=== PATIENT | male | born 1950 | race Caucasian/White ===

== ENCOUNTER → 2018-05-06 09:34 | Outpatient (CLI) | payer BC, SELFPAY ==
--- NOTE | 2018-05-06 09:39 | RAD_ITS ---
STUDY: X-RAY - PELVIS REASON FOR EXAM: Male, 68 years old. Rheumatoid arthritis. TECHNIQUE: One view of the pelvis was obtained. COMPARISON: None. FINDINGS: There is a non-specific bowel gas pattern. Normal visualized soft tissue structures. Normal bilateral iliac wings, sacroiliac joints and visualized sacrum. Normal visualized bilateral superior and inferior pubic rami. Normal pubic symphysis. Normal ischial tuberosities. Normal visualized right femoral head. Normal right acetabulum. Normal right hip joint. Normal visualized left femoral head. Normal left acetabulum. Normal left hip joint. RAD/Pelvis 1 or 2 Views IMPRESSION: Normal x-ray examination of the pelvis. Electronically Signed: Julian Sanderson DO at 17:09 EST Tel [phone], Service support ,
[2018-05-06 12:08] LABS: Absolute Lymphocyte Count 1.56 X10^3/ul (0.83-4.51); Absolute Neutrophil Count 4.5 X10^3/uL (2.0-7.7); Basophil# 0.12 X10^3/uL; Basophil% 1.7 % (0-1); Eosinophil# 0.26 X10^3/uL; Eosinophils% 3.8 % (0-5); Hemoglobin 19.2 g/dl (13.0-16.5); Lymphocyte # 1.56 X10^3/ul (4.0); Lymphocyte % 22.5 % (19-41); Mean Corp Hgb Conc 34.5 g/gl (32-36); Mean Corpuscular Hgb 30.8 pg (27.0-32.0); Mean Corpuscular Volume 89.2 fL (80-94); Monocyte# 0.49 X10^3/uL; Monocyte% 7.1 % (0-10); Neutrophil # 4.49 X10^3/uL (2.7-7.7); Neutrophil % 64.8 % (47-70); Platelet Count 225 K/mm3 (150-450); RBC Distribution Width CV 14.4 % (11.6-14.6); RBC Distribution Width SD 47.2 fl (35.1-43.9); Red Blood Count 6.23 M/mm3 (4.6-6.2); White Blood Count 6.9 K/mm3 (4.4-11.0)
[2018-05-06 12:18] LABS: AST(SGOT) 25 U/L (15-37); Alanine Aminotransfer ALT/SGPT 42 U/L (16-61); Albumin, Serum 4.2 g/dL (3.2-5.0); Alkaline Phosphatase 76 U/L (45-117); Anion Gap 11 (5-15); BUN 15 mg/dL (7-18); BUN/Creat Ratio 12.9 RATIO (10-20); Calcium,Total 9.1 mg/dL (8.5-10.1); Chloride 98 mmol/L (98-107); Creatinine, Serum 1.16 mg/dL (0.70-1.30); EST Glomerular Filtration Rate 66 mL/min (>60); Est Glom Filt Rate - Afr Amer 80 mL/min (>60); Globulin 4.2 g/dL (2.2-4.2); Glucose 101 mg/dL (74-106); Potassium 3.3 mmol/L (3.5-5.1); Protein, Total 8.4 g/dL (6.4-8.2); Sodium Level 137 mmol/L (136-145)
[2018-05-06 13:03] LABS: Hematocrit 55.6 % (40-54)
[2018-05-06 13:04] LABS: POSITIVE COUNT NO; POSITIVE DIFFERENTIAL NO; POSITIVE MORPHOLOGY NO
[2018-05-12 17:09] LABS: HEPATITIS B SURFACE AG Negative (Negative); HLA B27 Negative (.); Hep B Surface Antibodies Non Reactive (.); Hep C Antibodies <0.1 s/co ratio (0.0-0.9)
== END ==
PROVIDERS: Referring Provider Internal Medicine Rheumatology; Visit Provider Internal Medicine Rheumatology
DX: M05.79 Rheumatoid arthritis with rheumatoid factor of multiple sites without organ or systems involvement (principal); M15.9 Polyosteoarthritis, unspecified; Q66.7 Congenital pes cavus; M48.061 Spinal stenosis, lumbar region without neurogenic claudication
CPT/HCPCS: 36415; 72170; 80053; 81374; 85025; 86706; 86803; 87340

== ENCOUNTER → 2018-06-03 12:48 | Outpatient (CLI) | payer BC, SELFPAY ==
[2018-06-03 14:18] LABS: Absolute Lymphocyte Count 1.93 X10^3/ul (0.83-4.51); Absolute Neutrophil Count 3.8 X10^3/uL (2.0-7.7); Basophil% 1.5 % (0-1); Eosinophil# 0.31 X10^3/uL; Eosinophils% 4.6 % (0-5); Hematocrit 51.7 % (40-54); Hemoglobin 17.7 g/dl (13.0-16.5); Lymphocyte # 1.93 X10^3/ul (4.0); Lymphocyte % 28.5 % (19-41); Mean Corp Hgb Conc 34.2 g/gl (32-36); Mean Corpuscular Hgb 30.9 pg (27.0-32.0); Mean Corpuscular Volume 90.2 fL (80-94); Mean Platelet Vol. 9.5 fl (6.2-12.0); Monocyte# 0.68 X10^3/uL; Neutrophil # 3.76 X10^3/uL (2.7-7.7); Neutrophil % 55.4 % (47-70); Platelet Count 227 K/mm3 (150-450); RBC Distribution Width CV 14.9 % (11.6-14.6); RBC Distribution Width SD 48.3 fl (35.1-43.9); Red Blood Count 5.73 M/mm3 (4.6-6.2); White Blood Count 6.8 K/mm3 (4.4-11.0)
[2018-06-03 14:19] LABS: POSITIVE COUNT NO; POSITIVE DIFFERENTIAL NO; POSITIVE MORPHOLOGY NO
--- OUTSIDE RECORDS SUMMARY | 2018-07-20 15:27 | XMS RPT_ITS ---
:1950 Author Organization [facility] Care Team Providers Name Role Phone DR. SUSAN LAL DO Attending Unavailable KAYE OLSON Primary Care Unavailable DR. SUSAN LAL DO Attending Unavailable KAYE OLSON Primary Care Unavailable DR. 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 without organ or systems involvement / M05.79(ICD-10) 05/06/2018 Unknown 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 [facility] Diagnosis unspecified / SUSAN [facility] E78.5(ICD-10) Repository 11/29/2017 Admitting Essential LUKASZ MARSHALL DR. [facility] Diagnosis (primary) SUSAN [facility] hypertension / Repository I10(ICD-10) 11/29/[address], unspecified DR. David LAL DO [facility] Diagnosis / M10.9(ICD-10) SUSAN [facility] Repository PROCEDURES PROCEDURES No Procedure Records FoundRESULTS RESULTS CBC W/DIFF, AUTOMATED Collected: 06/03/2018 Status: F Source: [facility] TYPE CODE TESTS RESULT OUT OF RANGE REFERENCE UNITS LAB L100.1000 4.4-11.0 K/mm3 Normal WBC 6.8 LAB L100.1200 4.6-6.2 M/mm3 Normal RBC 5.73 LAB L100.1300 13.0-16.5 g/dl High HGB 17.7 LAB L100.1400 40-54 % Normal HCT 51.7 LAB L100.1500 80-94 fL Normal MCV 90.2 LAB L100.1600 27.0-32.0 pg Normal MCH 30.9 LAB L100.1700 32-36 g/gl Normal MCHC 34.2 LAB L100.1810 11.6-14.6 % High RDW CV 14.9 LAB L100.1820 35.1-43.9 fl High RDW SD 48.3 LAB L100.1900 150-450 K/mm3 Normal PLT 227 LAB L100.2000 6.2-12.0 fl Normal MPV 9.5 LAB L100.2100 47-70 % Normal NEUT% 55.4 LAB L100.2200 19-41 % Normal LY% 28.5 LAB L100.2300 0-10 % Normal MONO% 10.0 LAB L100.2400 0-5 % Normal EO% 4.6 LAB L100.2500 0-1 % High BASO% 1.5 LAB L100.2550 0.0-0.9 % Normal IM GRAN % 0.000 Result Comment: IG% - Immature Granulocytes (promyelocytes, myelocytes and metamyelocytes) > 1% indicates that a LEFT SHIFT is Present. LAB L100.2620 2.0-7.7 X10 3/uL Normal Absolute Neut 3.8 LAB L100.2720 0.83-4.51 X10 3/ul Normal Absolute Lymph 1.93 Performed By: #### L100.0100 #### [facility] [address] [place], [address] FTESTO Collected: 05/30/2018 Status: F Source: [facility] 9:51 AM [facility] REPOSITORY TYPE CODE TESTS RESULT OUT OF REFERENCE UNITS RANGE LAB TESTO(LOIN 193-824 ng/dL C) Testosterone 405 Result Comment: Disregard reference range. Test performed by: [facility], [place], [place] Reference value is 240 to 950 ng/dL. Testing performed by [facility]. Called to Angela at [facility] 06/12/18 1107 SRobb Corrected on 06/12 AT 1108: Previously reported as 428 A testosterone level in the 193 320 ng/dL range with associated clinical symptoms is considered low and may indicate hypogonadism (from [facility] 2010 363:123 135). Results >320 ng/dL are considered normal. Performed By: [facility] [address] [place] [address] Daily Release And Dupe Printer: Socorro Peterson M.D. CLIA#: [id number] Phone#: LAB FREE(LOINC) Free Testosterone Percent free % calculation not provided by [facility]. Result Comment: Performed By: [facility] [address] [place] [id number] Daily Release And Dupe Printer: Socorro Peterson M.D. CLIA#: [id number] Phone#: LAB FTES(LOINC) 41.7-180.2 pg/mL Free Low Testosterone 8.1 Result Comment: Disregard reference range. Test performed by: [facility], [place], [place] Reference value is 3.28 to 12.2 ng/dL. Testing performed by [facility]. Performed By: [facility] [address] [place] [id number] Daily Release And Dupe Printer: Socorro Peterson M.D. CLIA#: [id number] Phone#: Performed By: #### FTESTO #### [address] [address] COMPREHENSIVE METABOLIC Collected: 05/06/2018 Status: F Source: [facility] CECI 9:40 AM [facility] REPOSITORY Order Comment: Comments: VECTRA TYPE CODE TESTS RESULT OUT OF RANGE REFERENCE UNITS LAB L501.0100 74-106 mg/dL Normal GLU 101 Result Comment: Fasting Glucose result from 100 to 125 mg/dL suggests IMPAIRED HOMEOSTASIS per A.D.A. criteria. Please note revised GLUCOSE reference range effective 2017. LAB L501.1000 7-18 mg/dL Normal BUN 15 LAB L501.1100 0.70-1.30 mg/dL Normal CREAT,SERUM 1.16 Result Comment: The validity of the calculated GFR AND GFRAA in patients over 70 years has not been determined. Clinical correlation is essential. LAB L501.1110 >60 mL/min Normal EST GFR 66 Result Comment: Non- GFR Calc LAB L501.1115 >60 mL/min Normal EST GFR - AA 80 Result Comment: GFR Calc LAB L501.1300 10-20 RATIO Normal BUN/CRE 12.9 LAB L501.1500 6.4-8.2 g/dL High T PROT 8.4 LAB L501.1800 3.2-5.0 g/dL Normal ALB 4.2 LAB L501.1950 2.2-4.2 g/dL Normal GLOB 4.2 LAB L501.2000 0.9-2.4 RATIO Normal A/G 1.0 LAB L501.2200 8.5-10.1 mg/dL CA Normal 9.1 LAB L501.4100 15-37 U/L Normal AST 25 Result Comment: Slight Hemolysis, Result may be falsely increased. LAB L501.4305 45-117 U/L Normal ALK P 76 LAB L501.4405 16-61 U/L Normal ALT 42 LAB L501.4600 0.20-1.00 mg/dL Normal T BILI 0.80 LAB L501.5300 136-145 mmol/L Normal NA 137 LAB L501.5600 3.5-5.1 mmol/L Low K 3.3 Result Comment: Slight Hemolysis, Result may be falsely increased. LAB L501.5900 98-107 mmol/L Normal CL 98 LAB L501.6100 21.0-32.0 mmol/L Normal CO2 28.0 LAB L501.6200 5-15 Normal GAP 11 Performed By: #### L500.4050 #### [facility] [address] [place], [address] CBC W/DIFF, AUTOMATED Collected: 05/06/2018 Status: F Source: [place] 9:40 AM [facility] REPOSITORY Order Comment: RESULTS CALLED TO ZACHERY BENOIT AT 'S OFFICE 05/06/18 1348 Zachery Lara. REPORT READ BACK BY SAME. TYPE CODE TESTS RESULT OUT OF RANGE REFERENCE UNITS LAB L100.1000 4.4-11.0 K/mm3 Normal WBC 6.9 LAB L100.1200 4.6-6.2 M/mm3 High RBC 6.23 LAB L100.1300 13.0-16.5 g/dl High alert HGB 19.2 LAB L100.1400 40-54 % High HCT 55.6 LAB L100.1500 80-94 fL Normal MCV 89.2 LAB L100.1600 27.0-32.0 pg Normal MCH 30.8 LAB L100.1700 32-36 g/gl Normal MCHC 34.5 LAB L100.1810 11.6-14.6 % Normal RDW CV 14.4 LAB L100.1820 35.1-43.9 fl High RDW SD 47.2 LAB L100.1900 150-450 K/mm3 Normal PLT 225 LAB L100.2000 6.2-12.0 fl Normal MPV 10.0 LAB L100.2100 47-70 % Normal NEUT% 64.8 LAB L100.2200 19-41 % Normal LY% 22.5 LAB L100.2300 0-10 % Normal MONO% 7.1 LAB L100.2400 0-5 % Normal EO% 3.8 LAB L100.2500 0-1 % High BASO% 1.7 LAB L100.2550 0.0-0.9 % Normal IM GRAN % 0.100 Result Comment: IG% - Immature Granulocytes (promyelocytes, myelocytes and metamyelocytes) > 1% indicates that a LEFT SHIFT is Present. LAB L100.2620 2.0-7.7 X10 3/uL Normal Absolute Neut 4.5 LAB L100.2720 0.83-4.51 X10 3/ul Normal Absolute Lymph 1.56 Performed By: #### L100.0100 #### [facility] [address] [place], [address] HEPATITIS B SURFACE Collected: 05/06/2018 Status: F Source: [place] AG 9:40 AM [facility] REPOSITORY TYPE CODE TESTS RESULT OUT OF RANGE REFERENCE UNITS LAB L3100.0400 Negative Normal HB Negative SURF AG Result Comment: Performed at: - [facility] [id number] Daily Release And Dupe Printer: Stewart Dwyer PhD, Phone: [phone] Performed at: - [facility] [id number] Daily Release And Dupe Printer: Sterling Burroughs PhD, Phone: [phone] Performed By: #### L3100.0390, L3100.0528, L3100.0625, L3410.1400 #### [facility] (refer to report for specific site) refer to report for address and phone number HEP B SURFACE Collected: 05/06/2018 Status: F Source: [facility] ANTIBODIES 9:40 AM [facility] REPOSITORY TYPE CODE TESTS RESULT OUT OF RANGE REFERENCE UNITS LAB L3100.0528 . Normal Hep B Non Reactive Adi AB Result Comment: Non Reactive: Inconsistent with immunity, less than 10 mIU/mL Reactive: Consistent with immunity, greater than 9.9 mIU/mL Performed By: #### L3100.0390, L3100.0528, L3100.0625, L3410.1400 #### [facility] (refer to report for specific site) refer to report for address and phone number HEPATITIS C ANTIBODIES Collected: 05/06/2018 Status: F Source: [place] 9:40 AM [facility] REPOSITORY TYPE CODE TESTS RESULT OUT OF RANGE REFERENCE UNITS LAB L3100.0650 0.0-0.9 s/co ratio Normal HEP C AB <0.1 Result Comment: Negative: < 0.8 Indeterminate: 0.8 - 0.9 Positive: > 0.9 The CDC recommends that a positive HCV antibody result be followed up with a HCV Nucleic Acid Amplification test (318991). Performed By: #### L3100.0390, L3100.0528, L3100.0625, L3410.1400 #### [facility] (refer to report for specific site) refer to report for address and phone number HLA B27 Collected: 05/06/2018 Status: F Source: [place] 9:40 AM [facility] REPOSITORY TYPE CODE TESTS RESULT OUT OF RANGE REFERENCE UNITS LAB L3410.1500 . Normal HLA Negative B27 Result Comment: HLA-B*27 Negative B27 allele interpretation for all loci based on IMGT/HLA database version 3.31.0 This test was developed and its performance characteristics determined by [facility]. It has not been cleared or approved by the Food and Drug Administration. [facility] CLIA ID Number [id number] This test was performed using PCR (Polymerase Chain Reaction)/SSOP (Sequence Specific Oligonucleotide Probes) technique. SBT (Sequence Based Typing) and/or SSP (Sequence Specific Primers) may be used as supplemental methods when necessary. Please contact [facility] Customer Service at if you have any questions. Director of [facility] Laboratory Dr Sterling Burroughs, PhD Performed By: #### L3100.0390, L3100.0528, L3100.0625, L3410.1400 #### [facility] (refer to report for specific site) refer to report for address and phone number MISCELLANEOUS LAB Collected: 05/06/2018 Status: F Source: [place] PROCEDURE 9:40 AM [facility] REPOSITORY Order Comment: Comments: VECTRA Test(s) Ordered: VECTRA TYPE CODE TESTS RESULT OUT OF RANGE REFERENCE UNITS LAB L801.1541 Normal [facility] LAB TEST Result Comment: Sent directly to testing facility per ordering physician. @ 06/03/18 1619 MYOUNG Performed By: #### L801.1541 #### [facility] [address] [facility] [place], [address] PELVIS 1 OR 2 VIEWS Observed: 05/06/2018 Status: F Source: [place] 9:39 AM [facility] REPOSITORY [facility] Imaging Services [address] [place] [address] Pelvis 1 or 2 Views MR#: [id number] Acct: [id number] Name: ESME DORSEY Rep #: [id number] : 1950 M 68 From: Julian Sanderson DO PCP: Susan Lal DO Status: REG CLI Study: Pelvis 1 or 2 Views Date of Exam: 05/06/18 Exam# [id number] Ordering Dr: Radha Mcclelland MD STUDY: X-RAY - PELVIS REASON FOR EXAM: Male, 68 years old. Rheumatoid arthritis. TECHNIQUE: One view of the pelvis was obtained. COMPARISON: None. FINDINGS: There is a non-specific bowel gas pattern. Normal visualized soft tissue structures. Normal bilateral iliac wings, sacroiliac joints and visualized sacrum. Normal visualized bilateral superior and inferior pubic rami. Normal pubic symphysis. Normal ischial tuberosities. Normal visualized right femoral head. Normal right acetabulum. Normal right hip joint. Normal visualized left femoral head. Normal left acetabulum. Normal left hip joint. RAD/Pelvis 1 or 2 Views IMPRESSION: Normal x-ray examination of the pelvis. Electronically Signed: Julian BoseonDO at 17:09 EST Tel [phone], Service support , CC: Susan Lal DO; Radha Mcclelland MD Large Sheetfed Press Operator: Signed URIC Collected: 03/18/2018 Status: F Source: [facility] 8:33 AM [facility]PART[facility] REPOSITORY TYPE CODE TESTS RESULT OUT OF RANGE REFERENCE UNITS LAB URIC(LOINC) 3.5-7.2 mg/dL Uric Acid 4.9 Lvl Performed By: #### URIC, ESR, CRP, PRACHI, CCP, RF #### [place] [address] ESR Collected: 03/18/2018 Status: F Source: [facility] 8:33 AM [facility] REPOSITORY TYPE CODE TESTS RESULT OUT OF REFERENCE UNITS RANGE LAB ESR(LOINC) 0-20 mm/hr Erythrocyte Sed Rate 4 Performed By: #### URIC, ESR, CRP, PRACHI, CCP, RF #### [place] [address] CRP Collected: 03/18/2018 Status: F Source: [facility] 8:33 AM [facility] REPOSITORY TYPE CODE TESTS RESULT OUT OF REFERENCE UNITS RANGE LAB CRP(LOINC) <=0.80 mg/dL High C-Reactive 1.00 Protein Performed By: #### URIC, ESR, CRP, PRACHI, CCP, RF #### [place] [address] PRACHI Collected: 03/18/2018 Status: F Source: [facility] 8:33 AM [facility] REPOSITORY TYPE CODE TESTS RESULT OUT OF RANGE REFERENCE UNITS LAB PRACHI(LOINC) Neg 40 PRACHI Neg 40 Performed By: #### URIC, ESR, CRP, PRACHI, CCP, RF #### [place] [address] CCP Collected: 03/18/2018 Status: F Source: [facility] 8:33 AM [facility] REPOSITORY TYPE CODE TESTS RESULT OUT OF REFERENCE UNITS RANGE LAB CCP(LOINC) Cyclic Citrullinated 145.9 Peptide Result Comment: Cyclic Citrullinated IgG Interpretation: Result Units Negative <20 Weak Positive 20-39 Moderate Positive 40-59 Strong Positive >=60 A positive result indicates the presence of IgG anti-CCP3 antibodies and suggests the possibility of RA. A negative result indicates no CCP3 antibody or levels below the negative cut-off of the assay. Results of this assay should be used in conjunction with clinical findings and other serological tests. These test results were obtained with the [employer] Quanta Lite CCP3 IgG SAMARA. Anti-CCP values obtained with different manufacturers' assay methods may not be used interchangeably. Performed By: #### URIC, ESR, CRP, PRACHI, CCP, RF #### [address] [address] RF Collected: 03/18/2018 Status: F Source: [facility] 8:33 AM [facility] TYPE CODE TESTS RESULT OUT OF REFERENCE UNITS RANGE LAB RF(LOINC) Rheumatoid 54.1 Factor Result Comment: RF IgM Antibody by Enzyme Immunoassay: Negative < or = 6 Positive > 6 A positive result indicates the presence of RF antibodies and suggests the possibility of rheumatoid arthritis. A negative result indicates no RF IgM antibody or levels below the negative cut-off of the assay. Results of this assay should be used in conjunction with clinical findings and other serological tests. These results were obtained with the [employer] QUANTA Lite RF IgM SAMARA. RF IgM values obtained with different manufacturers' assay methods may not be used interchangeably. The magnitude of the reported IgM levels cannot be correlated to an endpoint titer. Performed By: #### URIC, ESR, CRP, PRACHI, CCP, RF #### [place] [id number] CBC Collected: 11/29/2017 Status: F Source: [facility] 11:15 AM [facility]PART[facility] REPOSITORY TYPE CODE TESTS RESULT OUT OF REFERENCE UNITS RANGE LAB WBC(LOINC) 4.60-10.80 10 3/mcL WBC 7.60 LAB RBCCT(LOINC 4.04-6.13 10 6/mcL ) High RBC 6.16 LAB HGB(LOINC) 14.0-18.0 G/dL High Hgb 19.3 LAB HCT(LOINC) 42.0-52.0 % High Hct 57.1 LAB MCV(LOINC) 80.0-94.0 fL MCV 92.8 LAB MCH(LOINC) 27.0-31.2 pg High MCH 31.3 LAB MCHC(LOINC) 31.8-35.4 G/dL MCHC 33.7 LAB RDW(LOINC) 11.5-14.5 % High RDW 14.7 LAB PLT(LOINC) 130-400 10 3/mcL Platelet 238 LAB MPV(LOINC) 7.4-10.4 fL MPV 8.1 Performed By: #### CBC, ADIFF, ANEU, URIC, LIPID, CMP, GFR, FTESTO #### [place] [id number] [place], [place] [address] .AUTO DIFF Collected: 11/29/2017 Status: F Source: [facility] 11:15 AM [facility] REPOSITORY TYPE CODE TESTS RESULT OUT OF REFERENCE UNITS RANGE LAB JUAN PABLO(LOINC) 37.0-80.0 % Neutrophil % 57.9 LAB LYM(LOINC) 10.0-50.0 % Lymphocyte % 22.8 LAB MON(LOINC) 1.7-13.0 % Monocyte % 8.4 LAB EO(LOINC) 0.0-7.0 % High Eosinophil % 8.2 LAB BAS(LOINC) 0.0-2.5 % Basophil High % 2.7 LAB ABLYM(LOIN 0.77-3.85 10 3/mcL C) Lymphocyte, 1.70 Absolute LAB TONY(LOINC 0.15-1.00 10 3/mcL ) Monocyte, 0.60 Absolute LAB AEOS(LOINC 0.00-0.40 10 3/mcL ) High Eosinophil, 0.60 Absolute LAB ABAS(LOINC 0.00-0.19 10 3/mcL ) High Basophil, 0.20 Absolute Performed By: #### CBC, ADIFF, ANEU, URIC, LIPID, CMP, GFR, FTESTO #### [place] [id number] [place], [place] [address] .NEUABS Collected: 11/29/2017 Status: F Source: [facility] 11:15 AM [facility]PART[facility] REPOSITORY TYPE CODE TESTS RESULT OUT OF REFERENCE UNITS RANGE LAB ANEU(LOINC) 2.85-6.16 10 3/mcL Neutrophil, 4.40 Absolute Performed By: #### CBC, ADIFF, ANEU, URIC, LIPID, CMP, GFR, FTESTO #### [place] [id number] [place], [place] [address] URIC Collected: 11/29/2017 Status: F Source: [facility] 11:15 AM [facility] REPOSITORY TYPE CODE TESTS RESULT OUT OF RANGE REFERENCE UNITS LAB URIC(LOINC) 3.5-7.2 mcg/dL Uric Acid 6.1 Lvl Performed By: #### CBC, ADIFF, ANEU, URIC, LIPID, CMP, GFR, FTESTO #### [facility] [address] [place], [place] [address] LIPID Collected: 11/29/2017 Status: F Source: [facility] 11:15 AM [facility] REPOSITORY TYPE CODE TESTS RESULT OUT OF REFERENCE UNITS RANGE LAB CHOL(LOINC 131-200 mg/dL ) Cholesterol High 278 Result Comment: Cholesterol Reference Interval: Less than 200 Desirable 200-239 Borderline high risk 240 and above High risk LAB TRIG(LOINC) 40-150 mg/dL Triglycerides High 176 Result Comment: Triglyceride Reference Interval: Less than 150 Normal 150-199 Borderline high risk 200-499 High risk 500 or higher Very high risk LAB HD(LOINC) 35-90 mg/dL HDL Cholesterol 51 Result Comment: HDL Reference Interval: Less than 40 Low - high risk 60 or above Optimal/lowers risk LAB LDL(LOINC) 0-130 mg/dL LDL High Cholesterol 192 Result Comment: LDL is a calculated result and requires a 12-hr fast. LDL Reference Interval: Less than 100 Optimal 100-129 Near or above optimal 130-159 Borderline high risk 160-189 High risk 190 and above Very high risk Performed By: #### CBC, ADIFF, ANEU, URIC, LIPID, CMP, GFR, FTESTO #### [facility] [address] [place], [place] [address] CMP Collected: 11/29/2017 Status: F Source: [facility] 11:15 [facility] REPOSITORY TYPE CODE TESTS RESULT OUT OF REFERENCE UNITS RANGE LAB GLU(LOINC) 80-115 mg/dL Glucose High Level 120 LAB NA(LOINC) 136-146 mEq/L Sodium Level 140 LAB K(LOINC) 3.5-5.1 mEq/L Potassium Level 4.7 LAB CL(LOINC) 98-107 mEq/L Chloride 99 LAB CO2(LOINC) 23-31 mEq/L CO2 30 LAB EBAL(LOINC mEq/L ) Electrolyte Balance 11.0 LAB BUN(LOINC) 7.0-18.0 mg/dL BUN High 23.1 LAB CRE(LOINC) 0.6-1.2 mg/dL Creatinine Lvl (s) 1.1 LAB BC(LOINC) 7-27 ratio BUN/Creatinine 21 Ratio LAB CA(LOINC) 8.4-10.2 mg/dL Calcium Lvl High 10.4 LAB PROT(LOINC 6.0-8.3 G/dL ) Total Protein 7.9 LAB ALB(LOINC) 3.4-4.8 G/dL Albumin Level 4.8 LAB GLB(LOINC) G/dL Globulin 3.1 LAB AG(LOINC) 1.1-2.5 ratio A/G Ratio 1.5 LAB BILT(LOINC 0.2-1.0 mg/dL ) Bili Total 0.8 LAB AP(LOINC) 40-135 IU/L Alk Phos 86 LAB AST(LOINC) 10-40 IU/L AST/SGOT 22 LAB ALT(LOINC) 10-35 IU/L ALT/SGPT 26 Performed By: #### CBC, ADIFF, ANEU, URIC, LIPID, CMP, GFR, FTESTO #### [place] [address] .GFR Collected: 11/29/2017 Status: F Source: [facility] 11:15 AM [facility] REPOSITORY TYPE CODE TESTS RESULT OUT OF REFERENCE UNITS RANGE LAB GFRAA(LOINC ml/min/1.73 ) sqm GFR 79 Bahraini Result Comment: GFR Population mean for , Non- Americans Ages 20-29 = 116 mL/min/1.73 sq.m. Ages 30-39 = 107 mL/min/1.73 sq.m. Ages 40-49 = 99 mL/min/1.73 sq.m. Ages 50-59 = 93 mL/min/1.73 sq.m. Ages 60-69 = 85 mL/min/1.73 sq.m. Ages 70+ = 75 mL/min/1.73 sq.m. Chronic Kidney Disease: Less than 60 mL/min/1.73 square meters End Stage Renal Disease: Less than 15 mL/min/1.73 square meters LAB GFRNO(LOINC) ml/min/1.73sqm GFR Non- >60 Result Comment: GFR Population mean for , Non- Americans Ages 20-29 = 116 mL/min/1.73 sq.m. Ages 30-39 = 107 mL/min/1.73 sq.m. Ages 40-49 = 99 mL/min/1.73 sq.m. Ages 50-59 = 93 mL/min/1.73 sq.m. Ages 60-69 = 85 mL/min/1.73 sq.m. Ages 70+ = 75 mL/min/1.73 sq.m. Chronic Kidney Disease: Less than 60 mL/min/1.73 square meters End Stage Renal Disease: Less than 15 mL/min/1.73 square meters Performed By: #### CBC, ADIFF, ANEU, URIC, LIPID, CMP, GFR, FTESTO #### [place] [id number] [place], [place] [address] FTESTO Collected: 11/29/2017 Status: F Source: [facility] 11:15 AM [facility] REPOSITORY TYPE CODE TESTS RESULT OUT OF REFERENCE UNITS RANGE LAB TESTO(LOIN 193-824 ng/dL C) Testosterone 402 Result Comment: A testosterone level in the 193-320 ng/dL range with associated clinical symptoms is considered low and may indicate hypogonadism (from [facility] 2010 363:123-135). Results >320 ng/dL are considered normal. Performed By: [facility] [place] [address] Daily Release And Dupe Printer: Socorro Peterson M.D. CLIA#: [id number] Phone#: LAB FREE(LOINC) 1.4-3.2 % Free Testosterone % 2.2 Result Comment: Performed By: [facility] [employer] [place] [address] Daily Release And Dupe Printer: Socorro Peterson M.D. CLIA#: [id number] Phone#: LAB FTES(LOINC) 41.7-180.2 pg/mL Free Testosterone 89.6 Result Comment: This test was developed and its performance characteristics determined by [facility] ([facility]). It has not been cleared or approved by the FDA. [facility] is regulated under CLIA as qualified to perform high-complexity testing. This test is used for clinical purposes. It should not be regarded as investigational or for research. Performed By: [facility] [address] [place] [address] Daily Release And Dupe Printer: Socorro Peterson M.D. CLIA#: [id number] Phone#: Performed By: #### CBC, ADIFF, ANEU, URIC, LIPID, CMP, GFR, FTESTO #### [place] [address] [place], [place] [address] ALLERGIES ALLERGIES No Allergies Records FoundENCOUNTERS ENCOUNTERS ADMIT/DISCHARGE ACCOUNT NUMBER ADMITTING ENCOUNTER LOCATION SOURCE CLASS 06/03/2018 [id number] [facility] ding:[facility] Repository 05/30/2018/06/03/20 [id number] Ambulatory BBuilding:DR Russell [address] [place] [address] Repository 05/06/2018 [id number] [facility] ding[facility] Repository 03/18/2018/03/22/20 [id number] Ambulatory [address] ding:[facility] [place] Repository 11/29/2017/12/04/19 [id number] Ambulatory [address] ding:[facility] Repository 11/26/2017 [id number] Ambulatory BMSBuilding: [facility] Repository PAYERS PAYERS ENCOUNTER GUARANTOR PAYER SUBSCRIBER SOURCE 06/03/2018 ESME J Primary ESME J Weston [id number] Insurance:ANTHEMPolic CRABTREEDOB: Community KAMILA y Number: [id number], [place] [id number] Repository [address]Hlt: [phone]) Date:[id number] [phone] () [address], [place] [address]QW: 06/03/2018 Secondary NOT GIVENUNK [place] Insurance:SELF PAY [facility] Number: Effective Repository Date:2018-05-20 05/30/2018 ESME J Primary ESME J [facility] CRABTREEDOB: Insurance:ANTHEM CRABTREEDOB: [facility] [id number] Repository KAMILA DELM[address] Number: [place] [address]~CLAUDE_C_4 [id number]: [phone] [email or web address] Date:2018-05-30 l: [phone] [id number] (HP) Name:[facility] [address] (WP) (HP)Tel: [phone], [place] [address]999993 (WP) 21858MK: 05/06/2018 ESME J Primary ESME J [id number] Insurance:ANTHEMPolic CRABTREEDOB: [facility] KAMILA Number: [id number] [place], [place] [id number] Repository [address]Rtj: (330) Date:2816-86-04FA [phone] (HP) [id number] [place] [address]UO: 05/06/2018 Secondary NOT GIVENUNK [place] Insurance:SELF PAY [facility] Effective Repository Date:2018-05-06 03/18/2018 ESME J Primary ESME [facility] CRABTREEDOB: Insurance:ANTHEM CRABTREEDOB: [facility] [id number] Repository KAMILA [address] Number: [place] [address]~CLAUDE_C_4 [id number] [id number]: [phone]@[email or web address] Date:2018-03-18 l: [phone] (HP) Name:[facility] [address] (WP) (HP)Tel: [phone], [place] [phone] (WP) 48[address]WT: 11/29/2017 ESME J Primary ESME [facility] CRABTREEDOB: Insurance:ANTHEM CRABTREEDOB: [facility] [id number] Repository KAMILA [address] Number: [place] [address]~CLAUDE_C_4 [id number]: [phone]@[email or web address] Date:2017-11-29 l: [phone] () Name:[place] [address] () ()Tel: [phone], [place] [phone] (DX) [address]MD: 11/26/2017 Esme J [facility] Insurance:ANTHEMPolic CrabtreeDOB: [facility] Kamila Number: [id number] [id number] Repository [address]Gll: 330) Date:1736-54-59FS [phone] () [id number], [place] [address]SF: 11/26/2017 Secondary NOT GIVENUNK Shayla Insurance:SELF PAY [facility] Number: Effective Repository Date:2017-08-29
== END ==
PROVIDERS: Referring Provider Internal Medicine Rheumatology; Visit Provider Internal Medicine Rheumatology
DX: M05.79 Rheumatoid arthritis with rheumatoid factor of multiple sites without organ or systems involvement (principal); Z79.899 Other long term (current) drug therapy; M15.9 Polyosteoarthritis, unspecified; Q66.7 Congenital pes cavus; M48.061 Spinal stenosis, lumbar region without neurogenic claudication; K21.9 Gastro-esophageal reflux disease without esophagitis; E11.9 Type 2 diabetes mellitus without complications; I10 Essential (primary) hypertension
CPT/HCPCS: 36415; 85025

== ENCOUNTER → 2018-07-24 11:09 | Outpatient (CLI) | payer BC, SELFPAY ==
[2018-07-24 12:03] LABS: Absolute Neutrophil Count 3.9 X10^3/uL (2.0-7.7); Basophil# 0.09 X10^3/uL; Basophil% 1.3 % (0-1); Eosinophil# 0.33 X10^3/uL; Eosinophils% 4.9 % (0-5); Hematocrit 51.1 % (40-54); Hemoglobin 17.3 g/dl (13.0-16.5); Mean Corp Hgb Conc 33.9 g/gl (32-36); Mean Corpuscular Hgb 30.8 pg (27.0-32.0); Mean Corpuscular Volume 91.1 fL (80-94); Mean Platelet Vol. 9.6 fl (6.2-12.0); Monocyte% 10.5 % (0-10); Neutrophil # 3.94 X10^3/uL (2.7-7.7); Neutrophil % 59.2 % (47-70); Platelet Count 228 K/mm3 (150-450); RBC Distribution Width CV 16.4 % (11.6-14.6); RBC Distribution Width SD 53.7 fl (35.1-43.9); Red Blood Count 5.61 M/mm3 (4.6-6.2); White Blood Count 6.7 K/mm3 (4.4-11.0)
[2018-07-24 12:07] LABS: POSITIVE COUNT NO; POSITIVE DIFFERENTIAL NO; POSITIVE MORPHOLOGY NO
[2018-07-24 12:18] LABS: AST(SGOT) 32 U/L (15-37); Alanine Aminotransfer ALT/SGPT 68 U/L (16-61); Albumin, Serum 3.9 g/dL (3.2-5.0); Alkaline Phosphatase 69 U/L (45-117); Anion Gap 7 (5-15); BUN 16 mg/dL (7-18); Calcium,Total 9.2 mg/dL (8.5-10.1); Chloride 101 mmol/L (98-107); Creatinine, Serum 1.14 mg/dL (0.70-1.30); EST Glomerular Filtration Rate 67 mL/min (>60); Est Glom Filt Rate - Afr Amer 82 mL/min (>60); Globulin 4.1 g/dL (2.2-4.2); Glucose 99 mg/dL (74-106); Potassium 3.8 mmol/L (3.5-5.1); Sodium Level 137 mmol/L (136-145)
== END ==
PROVIDERS: Referring Provider Internal Medicine Rheumatology; Visit Provider Internal Medicine Rheumatology
DX: M05.79 Rheumatoid arthritis with rheumatoid factor of multiple sites without organ or systems involvement (principal); Z79.899 Other long term (current) drug therapy; M15.9 Polyosteoarthritis, unspecified; Q66.7 Congenital pes cavus; M48.061 Spinal stenosis, lumbar region without neurogenic claudication; K21.9 Gastro-esophageal reflux disease without esophagitis; E11.9 Type 2 diabetes mellitus without complications; I10 Essential (primary) hypertension
CPT/HCPCS: 36415; 80053; 85025

== ENCOUNTER → 2018-08-05 08:12 | Outpatient (CLI) | payer BC, SELFPAY ==
--- NOTE | 2018-08-05 08:14 | US_ITS ---
STUDY: ABDOMINAL ULTRASOUND - RIGHT UPPER QUADRANT REASON FOR VISIT: Male, 68 years old. Elevated liver enzymes TECHNIQUE: Ultrasound evaluation of the right upper quadrant was performed with real-time and static siu-scale imaging. TECHNICAL QUALITY: Adequate. COMPARISON: None. FINDINGS: Liver: The liver measures 17.4 cm. There is increased echogenicity consistent with fatty infiltration. The bile ducts are within normal limits. There is hepatic color flow. The direction of portal flow is hepatopetal. There is no demonstrated mass lesion. Gallbladder: Status post cholecystectomy. Common Bile Duct (C.B.D.): The common bile duct measures 3 mm. Pancreas: Normal size of the head, body and tail of the pancreas. There is normal echogenicity of the pancreas. There is no demonstrated pancreatic mass or cyst. Right Kidney: Normal size of the right kidney. The right kidney measures 12.3 x 5.5 x 6.3 cm. Normal renal cortex. The right cortex measures 2.4 cm. There is no demonstrated renal mass or cyst. There is no right hydronephrosis. US/Liver IMPRESSION: Status post cholecystectomy. Mildly enlarged liver with mild increased echotexture which can be seen with hepatocellular disease such as hepatic steatosis. No definite mass lesions are seen. There is clinical concern a CT or MRI liver mass protocol could be performed to further evaluate. Electronically Signed: Dimas Lim, at 4:40 EST Tel , Service support ,
== END ==
PROVIDERS: Referring Provider Internal Medicine Rheumatology; Visit Provider Internal Medicine Rheumatology
DX: M05.79 Rheumatoid arthritis with rheumatoid factor of multiple sites without organ or systems involvement (principal)
CPT/HCPCS: 76705

== ENCOUNTER 2021-07-10 14:52 | Outpatient (CLI) | payer BC, SELFPAY ==
--- NOTE | 2021-07-10 | SPU_PTH ---
PATIENT: ESME DORSEY JUNIOR LOC: MTLAB U#:[id number] AGE/SX: 71/M ROOM: RE07/10/[address]: Dr. Marin Garcia MD : 1950 BED: DIS: 07/10/2021 SPEC #: [id number] RECD: 07/11/21 08:22 STATUS: STAR REBucky #: [id number] ZULLY: 07/10/21 00:[address]: Marin Garcia V DEPT: CYTOLOGY RECD BY: Narciso Hernandez ENTERED: 07/11/21 08:22 SP TYPE: Sputum Cy OT DR: Dr. Sondra Peters, DO Tissues: Sputum Procedures: Pap Stain (control) Special Stain Group II Special Stain Group I AFB Stain (control) Cytospin Fluid HEADER OPERATION: Not noted PRE-OP DIAGNOSIS: R91.1, R04.2 TISSUE SUBMITTED: Sputum for cytology DIAGNOSIS CYTOLOGY Sputum for cytology (smears and cytospin): Negative for malignant cells. See comment. SJ:jailyn 07/11/2021 COMMENT Special stain for acid fast bacilli is negative for organisms; matched control is appropriate. Numerous fungal organisms (yeast, budding yeast suggestive of Mady species, may represent mouth contaminants and rare septate hyphae) are noted; matched control is appropriate. Correlation with clinical findings and appropriate follow up are necessary. Case has been reviewed in consultation with Dr. Perez who concurs with the above diagnosis. IDC:AM CYTOLOGY STUDY Slides are reviewed. CYTOLOGY GROSS Received is 0.5 ml of thick cloudy fluid labeled with the patient's name and and designated per the requisition as sputum. Submitted for cytology preparation. / jailyn 07/10/2021 TC:5 CPT: 46983, 57141 x2
[2021-07-10 15:08] LABS: Cytology, Body Fluid / CSF SEE PATHOLOGY REPORT
[2021-07-12 08:27] LABS: Carcinoembryonic Antigen 5.6 ng/mL (0.0-4.7)
== END 2021-07-10 23:59 | disposition short-term general hospital (02) ==
PROVIDERS: Referring Provider Internal Medicine Pulmonary Disease; Visit Provider Internal Medicine Pulmonary Disease
DX: R91.1 Solitary pulmonary nodule (principal); R04.2 Hemoptysis
CPT/HCPCS: 36415; 82378; 84153; 88108; 88312; 88313

== ENCOUNTER 2021-07-11 12:12 | Outpatient (CLI) | payer BC, SELFPAY ==
--- NOTE | 2021-07-12 01:18 | SPU_PTH ---
PATIENT: ESME DORSEY JUNIOR LOC: [facility]TLAB U#:[id number] AGE/SX: 71/M ROOM: RE07/11/[address]: Dr. Marin Garcia MD : 1950 BED: DIS: 07/11/2021 SPEC #: [id number] RECD: 07/12/21 08:50 STATUS: STAR REQ #: [id number] ZULLY: 07/12/21 01:[address]: Marin Garcia V DEPT: CYTOLOGY RECD BY: Basilia Gerber ENTERED: 07/12/21 08:51 SP TYPE: Sputum Cy DELMA DR: Dr. Sondra Peters, DO Tissues: Sputum Procedures: Pap Stain (control) Special Stain Group II Special Stain Group I AFB Stain (control) Cytospin Fluid HEADER OPERATION: Not noted PRE-OP DIAGNOSIS: R91.1, R04.2 TISSUE SUBMITTED: Sputum for cytology DIAGNOSIS CYTOLOGY Sputum for cytology (smears and cytospin) Negative for malignant cells. See comment. SJ:jailyn 07/12/2021 COMMENT Special stains for acid fast bacilli and fungi are negative for organisms; matched control are appropriate. Please also make reference to previous specimen [id number], sputum for cytology with diagnosis of ?negative for malignant cells?. Case has been reviewed in consultation with Dr. Perez who concurs with the above diagnosis. IDC:AM CYTOLOGY STUDY Slides are reviewed. CYTOLOGY GROSS Received is 1 ml of basilio-white, mucoid fluid labeled with the patient's name and and designated per the requisition as sputum. Submitted for cytology preparation. / jailyn 07/12/2021 TC:5 CPT: 29257, 93325 x2
[2021-07-12 07:31] LABS: Cytology, Body Fluid / CSF SEE PATHOLOGY REPORT
== END 2021-07-11 23:59 | disposition short-term general hospital (02) ==
LOC: MTLAB 12:13
PROVIDERS: Referring Provider Internal Medicine Pulmonary Disease; Visit Provider Internal Medicine Pulmonary Disease
DX: R91.1 Solitary pulmonary nodule (principal); R04.2 Hemoptysis
CPT/HCPCS: 87070; 87205; 88108; 88312; 88313

== ENCOUNTER 2021-07-12 11:14 | Outpatient (CLI) | payer BC, SELFPAY ==
--- NOTE | 2021-07-12 11:30 | PET_ITS ---
EXAMINATION: FDG PET/CT INDICATIONS: A 71-year-old male with history of pulmonary nodularity. COMPARISON EXAMINATION: CT of the chest report dated 07/05/21 INDEX LESION SIZE SUV INTERPRETATION Left thoracic perihilum 34.4 x 42.1-mm (frame 239) 12.4 Fulfills quantitative criteria for viable neoplasm Abdominal retroperitoneum 15.3-mm (frame 176) 7.1 Fulfills quantitative criteria for viable neoplasm Appendicular, axial skeletal structures 18.1 (max) Fulfills quantitative criteria for viable neoplasm TECHNIQUE: Following the intravenous administration of 13.4 mCi of F-18 deoxyglucose via the right antecubital fossa, multiplanar image acquisitions of the neck, chest, abdomen and pelvis to level of mid thigh, obtained at one hour post radiopharmaceutical administration contemporaneously interpreted with the current CT of the neck, chest, abdomen and pelvis to level of mid thigh, dated 07/12/[address] of the chest report dated 07/05/21 reveal: SERUM GLUCOSE LEVEL: 122 mg/dl. HEIGHT: 74 inches. WEIGHT: 220 lbs. FINDINGS: 1. Increased glucose metabolism is defined in the left thoracic perihilum generating a calculated maximal standard uptake value of 12.4 (standardized-corrected). The maximal axial diameter of the corresponding metabolic, morphologic abnormality on review of CT of the chest dated 07/12/21 is 34.4-mm (transverse) x 42.1-mm (AP). 2. An increase in 18-F labeled glucose activity is manifest in the mid abdominal retroperitoneum to the right of the midline, peripancreatic in location. The calculated maximal standard uptake value is 7.1. The maximal axial diameter of the corresponding hypermetabolic soft tissue nodule on review of CT of the abdomen dated 07/12/21 is 15.3-mm. 3. Facilitated FDG concentration is manifest in the right scapula, left proximal femur, eleventh-twelfth thoracic, four-fifth lumbar vertebrae rendering a calculated maximal standard uptake value of 18.1. Corresponding primarily lytic changes are noted in the analogous locations on review of CT of the neck-pelvis dated 07/12/21. 4. Normal physiologic distribution of the radiopharmaceutical is apparent in the hepatic (3.5) and splenic parenchyma, both renal units, bladder and visualized intestinal tract. Diffuse radiopharmaceutical concentration is noted in all four quadrants of the abdomen and pelvis. The visualized portion of the cerebral cortical-subcortical structures demonstrate symmetric and preserved glucose metabolism. Pertinent CT findings are as follows: CHEST: Coronary arterial calcification is observed. Atherosclerotic calcification is defined in the thoracic aorta. The maximal axial diameter of the ascending thoracic aorta is 37.5-mm. Bilateral axillary soft tissue densities with fatty hilus are ametabolic. Paraseptal emphysematous changes are noted in the right-left upper lung griffin. ABDOMEN AND PELVIS: The gallbladder is surgically absent. There is borderline fatty metamorphosis-steatosis defined in the hepatic parenchyma. There is atherosclerotic calcification defined in the abdominal aorta without evidence of dilatation-aneurysm formation. Abdominal-pelvic arterial calcification is observed. Fat containing bilateral inguinal hernias are demonstrated. Right-left inguinal soft tissue densities with fatty hilus are ametabolic. Calcifications are manifest within the left kidney. SKELETAL: Degenerative changes are noted in the cervical, thoracic and lumbar spine without evidence of increased radiopharmaceutical concentration. Primarily lytic change is noted in several locations within the appendicular and axial skeletal structures demonstrate quantitatively significant increased FDG uptake. PET/PET/CT Tumor Base -Thigh Init IMPRESSION: 1. Increased glucose concentration noted in the left thoracic perihilum fulfills quantitative criteria for viable neoplasm. Histopathologic analysis is recommended. (Celeste et al, Journal of Clinical Oncology 16:2142, 1998 Mascorro et al, Annals of Internal Medicine, 138:724, 2003). 2. The abdominal retroperitoneal hypermetabolic focus fulfills quantitative criteria for viable neoplasia. 3. Appendicular and axial skeletal hypermetabolic foci fulfill quantitative criteria for presumed viable osseous metastatic disease. (Erin et al, Clinical Nuclear Medicine, 29:161, 2004). Electronic Signature Marcus Acosta D.O. Accurate Quantification of SUVs for this report are calculated using the exclusive [employer]. (U.S. Patent No. 10, 674, 983). Standardization and correction of the FDG SUV metric via ACCUQUAN technology allow for vendor non-specific objective quantitative examination comparison and optimization of the sensitivity and specificity of the FDG PET-CT examination. Electronically Signed: Marcus Acosta DO at 22:30 EST Tel , Service support ,
== END 2021-07-12 23:59 | disposition short-term general hospital (02) ==
PROVIDERS: Referring Provider Internal Medicine Pulmonary Disease; Visit Provider Internal Medicine Pulmonary Disease
DX: R91.1 Solitary pulmonary nodule (principal)
CPT/HCPCS: 78815; A9552

== ENCOUNTER 2021-08-02 12:25 | Day surgery (SDC) | payer BC, SELFPAY ==
--- NOTE | 2021-08-02 | FLU_PTH ---
PATIENT: ESME DORSEY JUNIOR LOC: EN U#:[id number] AGE/SX: 71/M ROOM: RE08/02/[address]: Dr. Marin Garcia MD : 1950 BED: DIS: 08/02/2021 SPEC #: [id number] RECD: 08/02/21 10:58 STATUS: STAR REBucky #: [id number] ZULLY: 08/02/21 00:[address]: Marin Garcia V DEPT: CYTOLOGY RECD BY: Narciso Hernandez ENTERED: 08/03/21 10:59 SP TYPE: Fluid OTHR DR: Dr. Sondra Peters, DO Dr. Sondra Peters, Tissues: A - Bronchus of left upper lobe B - Bronchus of left upper lobe C - Bronchus of left upper lobe Procedures: Special Stain Group II Surgery Specimen Level IV Cytospin Fluid HEADER OPERATION: Bronchoscopy (MAC) PRE-OP DIAGNOSIS: Solitary pulmonary nodule, COPD, hemoptysis TISSUE SUBMITTED: A ? BAL LION fluid, B ? [place] LION, C - LION brushings x3 slides DIAGNOSIS CYTOLOGY A. BAL fluid for cytology (cytospin and cell block): Negative for malignant cells. B. LION brush fluid (cell block): Rare atypical epithelial cells noted. C. LION brushings (smears): A few atypical epithelial cells noted. HANH:jailyn 08/04/2021 COMMENT Clinical correlation and appropriate follow up are necessary. 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 Perez who concurs with the above diagnosis. IDC:AM CYTOLOGY STUDY Slides are reviewed. CYTOLOGY GROSS A - Received is 35 ml of red cloudy fluid labeled with the patient's name and and designated per the requisition as LION. Submitted for cytology preparation including cell block. B - Received is a metallic endoscopic cytobrush with adherent minute fragments of basilio-red tissue brush in 2 ml of clear red fluid and labeled with the patient's name and and designated per the requisition as brush. The material is dislodged from the brush and submitted for cytology preparation including cell block. C - Received are three smears labeled with the patient's name and designated per the requisition as brush LION. Submitted for staining. / jailyn 08/03/2021 TC:5 CPT: 73025, 38950 x2, 47942
--- NOTE | 2021-08-02 | IMM_PTH ---
PATIENT: ESME DORSEY JUNIOR LOC: EN U#:[id number] AGE/SX: 71/M ROOM: RE08/02/[address]: Dr. Marin Garcia MD : 1950 BED: DIS: 08/02/2021 SPEC #: [id number] RECD: 08/04/21 13:05 STATUS: STAR REBucky #: [id number] ZULLY: 08/02/21 00:[address]: Marin Garcia V DEPT: IMMUNOHISTOCHEMISTRY RECD BY: Yumiko Gonzales ENTERED: 08/04/21 13:07 SP TYPE: IMMUNO OTHR DR: Dr. Sondra Peters, DO Dr. Sondra Peters, DO Tissues: Left upper lobe of lung, NOS Procedures: RCC (add) NAPSIN A (add) CK14 (add) CK20 (add) CK5-6 (add) CK7 (add) CK8 (add) HEP PAR (add) TTF1 (add) 34BE12 (add) Pankeratin (initial) P40 (add) PSAP (add) PHYSICIAN & INSTITUTION [place] [phone] SPECIMEN INFORMATION: Tissue Source: LION temple Clinical Info: Solitary pulmonary nodule, COPD, hemoptysis Specimen Number: [id number] CPT code: 87357, 52041 x12 METHODOLOGY: Deparaffinized sections of prefer/formalin-fixed tissue or PAP/DQ stained slides are incubated with monoclonal/polyclonal antibodies/oligonucleotide probes. Localization is made via biotin free immunoperoxidase method. Appropriate controls are performed and reacted as expected. Results on target cell population are indicated in the following table: RESULTS: ANTIBODY / CLONE RESULT AE1-3 (AE1/AE3/PCK26) positive CK7 (OV-TL12/30) positive CK8 (55slftO15) positive CK20 (KS20.8) negative TTF-1 (8G7G3/1) negative Napsin A (Rabbit Polyclonal) negative HepPar (OCh1E5) negative RCC (PN-15) negative PSAP (PASE/4LJ) negative CK5-6 (D5 & 1684) positive, rare cells P40 (BC28) positive 34BE12 (34BE12) positive CK14 (LL002) negative These tests were developed and their performance characteristics determined by [facility]. They may not have been cleared or approved by the U.S. Food and Drug Administration. The FDA has determined that such clearance or approval is not necessary. The above immunohistochemical/dualISH markers are ordered and reviewed by the Pathologist. INTERPRETATION: Left upper lobe lung lesion, endobronchial biopsy: Non-small cell carcinoma, favor squamous cell carcinoma. SJ:jailyn 08/07/2021 Case has been reviewed in consultation with Dr. Perez who concurs with the above diagnosis. IDC:AM
--- NOTE | 2021-08-02 | LUNB_PTH ---
PATIENT: ESME DORSEY JUNIOR LOC: EN U#:[id number] AGE/SX: 71/M ROOM: RE08/02/[address]: Dr. Marin Garcia MD : 1950 BED: DIS: 08/02/2021 SPEC #: [id number] RECD: 08/02/21 14:44 STATUS: STAR NICOLAS #: [id number] ZULLY: 08/02/21 00:[address]: Marin Garcia V DEPT: SURGICAL PATHOLOGY RECD BY: Narciso Hernandez ENTERED: 08/03/21 10:58 SP TYPE: LUNG BX OTHR DR: Dr. Sondra Peters, DO Dr. Sondra Peters, Tissues: Lung, NOS Procedures: Surgery Specimen Level IV HEADER OPERATION: Bronchoscopy (MAC) PRE-OP DIAGNOSIS: Solitary pulmonary nodule, COPD, hemoptysis TISSUE SUBMITTED: LION apical MICROSCOPIC DIAGNOSIS Left upper lobe lung lesion, endobronchial biopsy: Poorly differentiated non-small cell carcinoma, favor adenosqumous cell carcinoma. See comment. HANH:jailyn 08/04/2021 COMMENT Immunohistochemistry ([id number]) supports the above diagnosis. Please also make reference to corresponding cytology specimen ([id number]). Molecular studies on the tumor can be performed if clinically indicated. Please notify the laboratory if they are needed. This case was discussed with Dr. Garcia on 08/04/2021. This case has been reviewed in consultation with Dr. Perez who concurs with the above diagnosis. MICROSCOPIC DESCRIPTION Slides are reviewed. GROSS DESCRIPTION Received in fixative is one container labeled with the patient's name and designated biopsy left upper lobe endobronchial. The specimen consists of multiple irregular fragments of light basilio soft tissue that in aggregate measure 1.5 x 0.3 x 0.1 cm. The specimen is totally submitted in one cassette. / HANH:jailyn 08/03/2021 TC:0 [facility]: [id number] ADDENDUM ADDENDUM ADDENDUM ADDENDUM ADDENDUM ADDENDUM 08/15/2021 11:03 ADDENDUM 08/16/2021 10:48 ADDENDUM 08/15/2021 11:03 ADDENDUM 08/15/2021 11:03 ADDENDUM 08/15/2021 11:03 ADDENDUM 08/15/2021 11:03 PD-L1 (KEYTRUDA) IMMUNOHISTOCHEMICAL ANALYSIS FROM [facility] RESULTS: Tumor proportion score: 3-5% / Positive Please see complete report in e-chart or EMR [facility] ADVANCED LUNG CANCER NGS REPORT FROM [facility] [employer] [facility] RESULT SUMMARY: Abnormal IMMUNOTHERAPY BIOMARKERS: Tumor Mutation [place]: High (19.6 Mutations / MB) Microsatellite Instability: MSI Negative PERTINENT NEGATIVE RESULTS: The following genes are NEGATIVE for clinically relevant mutations. Mutational hotspots and surrounding exonic regions were interrogated for DNA level point mutations and indels (fusions not assayed). AKT1, ALK, ATR, BRAF, CHEK1, DDR2, EGFR, ERBB2, FGFR1, KRAS, MAP2K1, MET, NRAS, NTRK1, PIK3CA, POLD1, POLE, ROS1, STK11, TERT, TP53 Please see complete report in e-chart or EMR
[2021-08-02 12:56] VITALS: BP 133/79; PULSE 88; RESP 16; TEMP 36; O2SAT 100; BMI 25.7
[2021-08-02] MEDS: Lactated Ringers 1,000 ML 15 ML IV (13:01)
[2021-08-02] MEDS: Phenylephrine 0.25% 15 ML NASAL.SRY 15 SPRAY NASAL (13:26)
[2021-08-02] MEDS: Lidocaine 2% (5ml sdv) 5 ML VIAL.MPF (13:34)
[2021-08-02] MEDS: Lidocaine 2% Jelly 1 APPLIC Tube (13:34)
[2021-08-02 14:30] VITALS: BP 133/79; BP 146/75; PULSE 88; RESP 16; TEMP 36.3; O2SAT 100
--- NOTE | 2021-08-02 14:33 | OP.BRONCH_ITS ---
Patient Name: Russell Zarate Procedure Date: 08/02/2021 1:16 PM Date of : 1950 Age: 71 Procedure: Bronchoscopy Indications: Hemoptysis with abnormal CXR Providers: Marin Garcia MD Referring MD: Sondra Peters Do Medicines: Lidocaine applied to nares and subglottic space, Lidocaine 2% applied to cords 10 mL Complications: No immediate complications Procedure: Pre-Anesthesia Assessment: - A History and Physical has been performed. The patient's medications, allergies and sensitivities have been reviewed. - The risks and benefits of the procedure and the sedation options and risks were discussed with the patient. All questions were answered and informed consent was obtained. - Pre-procedure physical examination revealed no contraindications to sedation. After I obtained informed consent, the scope was passed under direct vision. Throughout the procedure, the patient's blood pressure, pulse, and oxygen saturations were monitored continuously. The bronchoscope was introduced through the left nostril and advanced to the tracheobronchial tree of both lungs. The procedure was accomplished without difficulty. The patient tolerated the procedure well. The total duration of the procedure was 35 minutes. Moderate Sedation: An independent trained observer was present and continuously monitored the patient. Findings: Respiratory tract: The larynx is normal. The vocal cords appear normal. The subglottic space is normal. The trachea is of normal caliber. The venus is sharp. The entire tracheobronchial tree was examined to at least the first subsegmental level.The patient was given 2 cc 1:10,000, pt had bleeding before proceedure-minimal, pt was given cold saline 2 cc between bx samples and 10 cc at the end. Bronchial mucosa and anatomy are normal; there are no endobronchial lesions and no secretions, except in the anterior segment of the left upper lobe. Endobronchial biopsies of a lesion were performed in the apical-posterior segment of the left upper lobe using a forceps and sent for histopathology examination. Five samples were obtained. Brushings of a lesion were obtained in the apical-posterior segment of the left upper lobe with a cytology brush and sent for routine cytology. One sample was obtained. Impression: - Hemoptysis with abnormal CXR - An endobronchial biopsy was performed. - Brushings were obtained. - The examination was likely normal. Recommendation: - Await test results. - Await test results. Procedure Code(s): --- Professional --- 13005, Bronchoscopy, rigid or flexible, including fluoroscopic guidance, when performed; with bronchial or endobronchial biopsy(s), single or multiple sites 07134, Bronchoscopy, rigid or flexible, including fluoroscopic guidance, when performed; with brushing or protected brushings Diagnosis Code(s): --- Professional --- R04.2, Hemoptysis R91.8, Other nonspecific abnormal finding of lung field CPT copyright 2017 [employer]. All rights reserved. The codes documented in this report are preliminary and upon beet flumer review may be revised to meet current compliance requirements. MD Marin Dobson MD 08/02/2021 2:32:50 PM This report has been signed electronically. Number of Addenda: 0 Note Initiated On: 08/02/2021 1:16 PM
[2021-08-02 14:35] VITALS: BP 132/80; BP 133/79; PULSE 89; RESP 16; O2SAT 94
[2021-08-02 14:40] VITALS: BP 133/79; BP 150/76; PULSE 88; RESP 16; O2SAT 93
[2021-08-02 14:44] VITALS: BP 133/79; BP 142/82; PULSE 87; RESP 16; TEMP 36.4; O2SAT 95
[2021-08-02 15:01] LABS: Cytology, Body Fluid / CSF SEE PATHOLOGY REPORT
[2021-08-02 15:11] VITALS: BP 133/79
== END 2021-08-02 23:59 | disposition home or self-care (01) ==
LOC: EN 12:28 → AC 12:30
PROVIDERS: Visit Provider Internal Medicine Pulmonary Disease
PROC: 0BJ08ZZ Inspection of Tracheobronchial Tree, Via Natural or Artificial Opening Endoscopic (ICD-10-PCS; CPT 31622; principal; 2021-08-02 13:15)
DX: C34.12 Malignant neoplasm of upper lobe, left bronchus or lung (principal); R04.2 Hemoptysis; F17.200 Nicotine dependence, unspecified, uncomplicated; I10 Essential (primary) hypertension; R73.03 Prediabetes; Z79.899 Other long term (current) drug therapy
CPT/HCPCS: 31623; 31625; 88108; 88305; 88313; 88341; 88342; J7120; J2405; J3490

== ENCOUNTER 2021-09-06 23:31 | Emergency (ER) | payer BC, SELFPAY ==
[2021-09-06 23:31] VITALS: BP 105/61; PULSE 77; RESP 16; TEMP 36.6; O2SAT 96; BMI 28.2
[2021-09-07 00:17] VITALS: BP 97/52; PULSE 76; RESP 18; O2SAT 94
[2021-09-07 01:18] VITALS: BP 93/52; PULSE 74; RESP 18; O2SAT 94
--- NOTE | 2021-09-07 01:19 | EDS_ITS ---
HPI History of Present Illness Chief Complaint: To C/O Narrative Narrative: Patient is a 71-year-old male on hospice. Family states that he has been having difficulty urinating and that the hospice nurse was over this evening and try to place a To catheter but was unable to do so. Secondary to concern for urinary retention requiring To catheterization the patient was then sent to the ER for further care. Patient states he feels at his baseline other than the fact he has not been able to urinate [facility] Medical History (Updated 09/07/21 @ 01:[address] Jose Kevin, DO) Alcohol use Arthritis Back pain Cancer Chronic cough Diabetes Emphysema, unspecified Fatty liver Gastric reflux Gout High cholesterol History of echocardiogram History of steroid therapy History of stress test Hypertension Rheumatoid arthritis Small cell lung cancer Smoker Walker as ambulation aid Home Medications acetaminophen [Tylenol Ex Str Rapid Release] 500 mg PO Q6H 07/24/21 [History Last Taken Unknown] allopurinol 300 mg PO DAILY 07/24/21 [History Last Taken Unknown] amlodipine 10 mg PO DAILY 07/24/21 [History Last Taken 08/02/21] hydroxychloroquine 400 mg PO DAILY 07/24/21 [History Last Taken Unknown] lisinopril 40 mg PO DAILY 07/24/21 [History Last Taken 08/02/21] oxycodone 5 mg PO Q4H PRN 07/24/21 [History Last Taken 08/02/21] prednisone 10 mg PO DAILY 07/24/21 [History Last Taken Unknown] cyclobenzaprine 10 mg PO TID 09/07/21 [History Last Taken Unknown] lorazepam 0.5 mg PO DAILY 09/07/21 [History Last Taken Unknown] metoprolol succinate 25 mg PO DAILY 09/07/21 [History Last Taken Unknown] morphine 15 mg PO Q1H PRN 09/07/21 [History Last Taken Unknown] morphine concentrate 5 mg PO Q6H 09/07/21 [History Last Taken Unknown] omeprazole 20 mg PO DAILY 09/07/21 [History Last Taken Unknown] sennosides [senna] 8.6 mg PO BID 09/07/21 [History Last Taken Unknown] Allergy/AdvReac Type Severity Reaction Status Date / Time adhesive tape AdvReac Other Verified 09/06/21 23:33 Surgical History History of appendectomy History of back surgery History of basal cell carcinoma excision History of cholecystectomy History of hemorrhoidectomy History of spinal fusion History of squamous cell carcinoma excision Social History Smoking Status: Current every day smoker tobacco type: cigarettes ROS ROS ED Constitutional Constitutional ED: Denies chills or fever(s) ENT ENT ED: Denies sore throat Cardiovascular Cardiovascular: Denies chest pain Respiratory/Chest Respiratory/Chest: Denies cough or dyspnea Gastrointestinal Gastrointestinal: Denies abdominal pain, diarrhea, nausea or vomiting Genitourinary Genitourinary ED: Reports other Details: Positive urinary retention ; Denies dysuria Musculoskeletal Musculoskeletal: Denies myalgias Integumentary Denies rash Neurologic Neurologic: Reports weakness; Denies headache(s) Hematologic/Lymphatic Hematologic/Lymphatic: Denies easy bleeding or easy bruising EXAM Physical Exam Const Vital Signs: 09/06/21 23:31 09/07/21 00:17 09/07/21 01:18 Temperature 97.8 F Temperature Source Oral Pulse Rate 77 76 74 Respiratory Rate 16 18 18 Blood Pressure 105/61 97/52 L 93/52 L Blood Pressure Mean 75 67 Pulse Ox 96 94 94 Oxygen Delivery Method Nasal Cannula Room Air Oxygen Flow Rate (L/min) 2 Positive cachectic General Appearance ED: cachectic Nutritional Appearance: cachectic HEENT Reports dry mucous membranes Mouth ED: Yes dry mucous membranes Mouth: dry mucous membranes Eyes PERRL and EOMs intact bilaterally Neck supple Resp normal respiratory effort and clear to auscultation bilaterally Cardio regular rate and regular rhythm GI normal to inspection, nondistended, normoactive bowel sounds, non-tender, non- distended and no masses GI Narrative: No organomegaly no obvious bladder distention to suggest acute urinary retention Auscultation: normoactive bowel sounds Palpation: soft Narrative: Normal uncircumcised male without blood or discharge from the urethral meatus. No testicular pain or swelling noted. Foreskin can be retracted without difficulty. No overlying soft tissue changes to suggest Darwin's gangrene Extremity normal to inspection Neuro oriented x3 and CN's II-XII intact bilaterally Neuro Narrative: Patient has difficulty moving his right arm consistent with history of CVA but no new/acute findings Sensorium / Orientation: alert Psych Mood & Affect: depressed Skin no rashes or lesions noted Skin Narrative: Skin turgor is increased MDM MDM MDM Narrative Medical decision making narrative: Patient presented at his baseline status according to family with his recent hospice diagnosis. By exam he does not have obvious changes to suggest acute urinary retention but as he is not been able to urinate I did elect to have a To catheter placed. Catheter drained approximately 500 mL of urine and patient did report feeling better. Therefore at this time as he has had improvement of symptoms and the catheter has been placed successfully it can be kept in place to prevent further bouts of urinary retention and patient can be discharged back to hospice Discharge Plan Triage Chief Complaint: To C/O ED Provider: Jose Kevin Dx/Rx/DC Orders Clinical Impression: Acute urinary retention Instructions: ED Urinary Retention, Male Prescriptions: No Action prednisone 10 mg Tablet 10 mg PO DAILY RF: 0 acetaminophen [Tylenol Ex Str Rapid Release] 500 mg Tablet 500 mg PO Q6H RF: 0 amlodipine 10 mg Tablet 10 mg PO DAILY RF: 0 allopurinol 300 mg Tablet 300 mg PO DAILY RF: 0 lisinopril 40 mg Tablet 40 mg PO DAILY RF: 0 oxycodone 5 mg Tablet 5 mg PO Q4H PRN (Reason: Pain) RF: 0 hydroxychloroquine 400 mg Tablet 400 mg PO DAILY RF: 0 cyclobenzaprine 10 mg Tablet 10 mg PO TID RF: 0 sennosides [senna] 8.6 mg Tablet 8.6 mg PO BID RF: 0 lorazepam 0.5 mg Tablet 0.5 mg PO DAILY RF: 0 omeprazole 20 mg Capsule,Delayed Release(Dr/Ec) 20 mg PO DAILY RF: 0 morphine 15 mg Tablet Extended Release 15 mg PO Q1H PRN (Reason: Pain) RF: 0 metoprolol succinate 25 mg Tablet Extended Release 24 Hr 25 mg PO DAILY RF: 0 morphine concentrate 5 mg/0.25 mL Solution 5 mg PO Q6H RF: 0 Primary Care Provider: Sondra Peters Referrals: Surya Ocasio MD [STAFF PHYSICIAN] - 5-7 Days Sondra Peters DO [Primary Care Provider] - Disposition Disposition: Home, Self Care Discharge Date/Time: 09/07/21 02:21
[2021-09-07] MEDS: Lidocaine Jelly 2% 20 ML Syringe (URO-JET) 1 APPLIC TOPICAL (02:09)
== END 2021-09-07 02:21 | disposition home or self-care (01) ==
PROVIDERS: Emergency Provider Emergency Medicine; Visit Provider Emergency Medicine
DX: R33.9 Retention of urine, unspecified (principal); T83.9XXA Unspecified complication of genitourinary prosthetic device, implant and graft, initial encounter; M06.9 Rheumatoid arthritis, unspecified; J43.9 Emphysema, unspecified; E11.9 Type 2 diabetes mellitus without complications; F17.210 Nicotine dependence, cigarettes, uncomplicated; E78.00 Pure hypercholesterolemia, unspecified; I10 Essential (primary) hypertension; K21.9 Gastro-esophageal reflux disease without esophagitis; M10.9 Gout, unspecified; Z79.891 Long term (current) use of opiate analgesic; Z79.899 Other long term (current) drug therapy; Z79.52 Long term (current) use of systemic steroids; Z86.73 Personal history of transient ischemic attack (TIA), and cerebral infarction without residual deficits
CPT/HCPCS: 51702; 99285

== ENCOUNTER → 2021-09-06 23:31 | Outpatient (REF) | payer SELFPAY | END | disposition home or self-care (01) | LOC: ED 23:31 | PROVIDERS: Visit Provider Emergency Medicine | DX: R33.9 Retention of urine, unspecified (principal); F17.210 Nicotine dependence, cigarettes, uncomplicated | CPT/HCPCS: 51702; 99285 ==